=== PATIENT | male | born 1990 | race Hispanic/Latino ===

== ENCOUNTER 2022-02-22 18:38 | Emergency (ER) | payer OTHER ==
[~2022-02-22] VITALS: Ht 177.8 cm; Wt 103.6 kg
[2022-02-22] MEDS ORDERED: ONDANSETRON 4MG 2ML VIAL IV ONE (19:35)
[2022-02-22] MEDS ORDERED: MORPHINE 4 MG/ML 1ML VIAL/SYRINGE IV PRN (19:35)
[2022-02-22 20:55] LABS: RSV AMPLIFICATION NEGATIVE (NEGATIVE)
[2022-02-22] MEDS ORDERED: KETAMINE HCL 200 MG/20 ML VIAL IV ONE (21:00)
[2022-02-22] MEDS ORDERED: propofoL 200 MG/20 ML VIAL IV.PROC PRN (21:00)
[2022-02-22] MEDS ORDERED: NS 1,000 ML IV SCH (21:00)
[2022-02-22 23:33] VITALS: BP 134/82
[2022-02-22] MEDS ORDERED: OXYCODONE/APAP 5MG/325MG(HOME DOSE PACK) PO ONE (23:45)
[2022-02-23 00:05] VITALS: O2SAT 98
== END 2022-02-23 00:21 | disposition home or self-care (01) ==
LOC: M ED 18:38
DX: S43.014A Anterior dislocation of right humerus, initial encounter (principal); S43.034A Inferior dislocation of right humerus, initial encounter; S42.251A Displaced fracture of greater tuberosity of right humerus, initial encounter for closed fracture; S42.201A Unspecified fracture of upper end of right humerus, initial encounter for closed fracture; W19.XXXA Unspecified fall, initial encounter; Y92.410 Unspecified street and highway as the place of occurrence of the external cause; Y93.51 Activity, roller skating (inline) and skateboarding
CPT/HCPCS: 23655; 73020; 73030; 73200; 87631; 93041; 94760; 96361; 96374; 96375; 99285; J2270; J2405